=== PATIENT | female | born 1945 | race African-American/Black ===

== ENCOUNTER 2016-07-27 12:49 | Inpatient (IN) | payer MEDICARE, MEDICAID ==
[~2016-07-27] VITALS: Ht 152.4 cm; Wt 115.2 kg
[~2016-07-27 12:49] MED LIST: ATIVAN0.5 M1 PO; CALCIUM 500 + D1 TA1 PO; CEPHALEXIN500 M2 PO; CLARITIN10 MG PO; COLACE100 MG PO; COZAAR100 MG PO; DULCOLAX10 MG RC; FERROUS SULFAT325 M1 PO; FLEET ENEMA118 ML RC; LOVENOX40 MG/0.1 SUBQ; MILK OF MA400 MG/5 M PO; NEURONTIN100 MG PO; NIFEDICAL XL30 M1 PO; NORCO 325 MG-51 TAB PO; OSCAL500 MG PO; PEPCID20 MG PO; PRILOSEC40 MG PO; RESTORIL15 MG PO; ROBITUSSIN20 MG/1 ML PO; ROCALTROL0.25 MCG PO; SYNTHROID0.125 M1 PO; TENORMIN100 MG PO; TYLENOL EXTRA500 M1 PO; XALATAN 0.005%2.5 ML OP; ZESTRIL30 MG PO
[2016-07-27 12:55] VITALS: BP 213/106
--- NOTE | 2016-07-27 13:04 | NUR ---
70/F BIB DAUGHTER C/O HEADACHE, BODY ACHES, COUGH X1 DAY,Hx HTN, "THYROID CONDITION", NEPHRECTOMY 2014 . PT DENIES N/V/D; SKIN IS PINK/WARM/DRY; AAOX4 WITH EVEN AND UNSTEADY GAIT; LUNGS CLEAR BL; HR EVEN AND REGULAR; PT DENIES ANY FEVER OR CP AT THIS TIME; PATIENT STATES PAIN OF 10/10 AT THIS TIME; VSS; PATIENT POSITIONED FOR COMFORT; HOB ELEVATED; BEDRAILS UP X2; BED DOWN. ER MD MADE AWARE OF PT STATUS.
--- NOTE | 2016-07-27 13:04 | NUR ---
Note undone in EDM - 07/27/16 at 1910 by [email or web address] 70/F BIB DAUGHTER C/O HEADACHE, BODY ACHES, COUGH X1 DAY Hx HTN, "THYROID CONDITION", NEPHRECTOMY 2014PATIENT PRESENTS TO ED WITH . PT DENIES N/V/D; SKIN IS PINK/WARM/DRY; AAOX4 WITH EVEN AND UNSTEADY GAIT; LUNGS CLEAR BL; HR EVEN AND REGULAR; PT DENIES ANY FEVER OR CP AT THIS TIME; PATIENT STATES PAIN OF 10/10 AT THIS TIME; VSS; PATIENT POSITIONED FOR COMFORT; HOB ELEVATED; BEDRAILS UP X2; BED DOWN. ER MD MADE AWARE OF PT STATUS.
--- NOTE | 2016-07-27 13:05 | NUR ---
DR KHANNA EVALUATING PT AT BEDSIDE
--- NOTE | 2016-07-27 13:27 | NUR ---
LAB AT BEDSIDE
--- NOTE | 2016-07-27 13:38 | NUR ---
Patient appears to be resting comfortably in bed. Respirations even and unlabored.WILL CONTINUE TO MONITOR
--- NOTE | 2016-07-27 13:39 | NUR ---
X RAY AT BEDSIDE
[2016-07-27] MEDS ORDERED: cloNIDine 0.1 MG TAB PO ONE (15:25)
[2016-07-27] MEDS ORDERED: ACETAMINOPHEN EXTRA STRENGTH 500 MG TAB PO ONE (15:55)
[2016-07-27] MEDS ORDERED: ASPIRIN 81 MG TAB.CHEW PO ONE (16:50)
[2016-07-27] MEDS ORDERED: ACETAMINOPHEN 325 MG TAB PO PRN (18:35)
[2016-07-27] MEDS ORDERED: ONDANSETRON 4 MG/2 ML VIAL IVP PRN (18:35)
[2016-07-27] MEDS ORDERED: BISACODYL 10 MG SUPP RC PRN (18:45)
[2016-07-27] MEDS ORDERED: LORazepam 0.5 MG TAB PO PRN (18:45)
[2016-07-27] MEDS ORDERED: MAGNESIUM HYDROXIDE 2400 MG/30 ML UDC PO PRN (18:45)
[2016-07-27] MEDS ORDERED: TEMAZEPAM 15 MG CAP PO PRN (18:45)
--- NOTE | 2016-07-27 19:08 | NUR ---
CALLED TO GIVE REPORT ,BARRIE PINTO WILL CALL BACK
--- NOTE | 2016-07-27 19:15 | NUR ---
GIVEN REPORT TO BARRIE DAVIS
--- NOTE | 2016-07-27 19:25 | NUR ---
Patient will be admitted to care of DR DUNHAM (ORDER), DR JOHNSON (ADMITTING). Admited to TELE. Will go to room 108. Belongings list completed. Report to SUSAN.
--- NOTE | 2016-07-27 19:40 | NUR ---
PT IS CURRENTLY AWAKE ALERT ORIENTED ASSISTED TO HER BED,ORIENTED BUSINESS SUPPORT ASSISTANT LIGHT SYSTEM,ROOM AND VISITING HOURS,PT DENIES CHEST PAIN AND ANY SOB UPON ADMISSION. TELEMONITOR PLACED ON THE PATIENT AND WILL MONITOR HER HEART RHYTHM. SKIN CHECK DONE WITH REGULATORY SERVICES CONSULTANT NURSE DONOVAN AND SKIN IS INTACT.PT HAS UNSTEADY GAIT AND USES A CANE TO AMBULATE PT EDUCATED ON FALL AND SAFETY PRECAUTIONS AND VERBALIZES UNDERSTANDING.PLAN OF CARE DISCUSSED WITH THE PATIENT.MRSA COLLECTED AND WILL BE SEND TO THE LAB.VS TAKEN AND WILL BE RECORDED.ORDERS WILL BE REVIEWED AND CARRIED OUT.
[2016-07-27 20:13] VITALS: BP 132/70
--- NOTE | 2016-07-27 20:30 | NUR ---
PT RESTING IN BED AT THIS TIME DRANK SOME WATER SAYS HER VISION HAS BEEN NOT VERY CLEAR BUT SAYS SHE HAS HISTORY OF GLAUCOMA AND CATARACTS AND USES DROPS AT HOME.DENIES ANY HEADACHE AT THIS TIME.PLACED ON FALL PRECAUTIONS.WILL CONTINUE TO MONITOR.
[2016-07-27] MEDS: GABAPENTIN 100 MG CAP PO SCH (20:38)
[2016-07-27] MEDS: DOCUSATE SODIUM 250 MG GELCAP PO SCH (20:38)
[2016-07-27] MEDS: LATANOPROST 0.005% OP 2.5 ML BTL BOTH EYES SCH (21:00)
[2016-07-27] MEDS ORDERED: FAMOTIDINE 20 MG TAB PO SCH (21:00)
--- NOTE | 2016-07-27 22:30 | NUR ---
PT IS CURRENTLY RESTING IN BED SLEEPING NO PAIN OR DISCOMFORT NOTED.CALL LIGHT WITHIN REACH.
[2016-07-28] VITALS (8 sets, daily range): BP systolic 131–174; BP diastolic 44–104
--- NOTE | 2016-07-28 00:40 | NUR ---
PT ASSISTED TO USE THE BEDSIDE COMMODE WILL CONTINUE TO MONITOR PT NEEDS CONTINUE TO BE MET.CALL LIGHT WITHIN REACH.
--- NOTE | 2016-07-28 02:55 | NUR ---
MD DUNHAM AWARE THAT PT'S TROPONIN IS SLIGHTLY ELEVATED THAN LAST TIME AND INFORMED THAT PATIENT IS NOT COMPLAINING OF CHEST PAIN AND IS NOT IN ANY RESP DISTRESS.MD GAVE NO NEW ORDER.
[2016-07-28] MEDS: HYDROcodone/APAP 5/325 MG 1 TAB TAB PO PRN ×2 (04:05→13:27)
--- NOTE | 2016-07-28 04:09 | NUR ---
PT IS AWAKE ALERT ORIENTED WAS MEDICATED FOR HEADACHE PT STABLE DENIES ANY CHEST PAIN OR SOB NEEDS MET.CALL LIGHT WITHIN REACH WILL CONTINUE TO MONITOR.
--- NOTE | 2016-07-28 06:53 | NUR ---
PT STABLE RESTING IN BED IN NO DISTRESS WILL CONTINUE TO MONITOR.
--- NOTE | 2016-07-28 07:29 | NUR ---
PT STABLE REPORT ENDORSED TO RN NURSE CHLOE.
--- NOTE | 2016-07-28 07:30 | NUR ---
RECEIVED PT FROM BARRIE GAMEZ AWAKE AND LYING ON BED. AAOX4 WITH NO S/S OF RESPIRATORY DISCOMFORT. WITH IV ACCESS ON ARTHUR HAND 20G ON SALINE LOCK, PATENT AND INTACT. SKIN IS INTACT. DISCUSSED PLAN OF CARE, PT VERBALIZED UNDERSTANDING. ENFORCED FALL PRECAUTIONS. CALL LIGHT WITHIN REACH, WILL CONTINUE TO MONITOR.
[2016-07-28] MEDS: FERROUS SULFATE 325 MG TABEC PO SCH (08:33)
[2016-07-28] MEDS: LEVOTHYROXINE 0.025 MG TAB PO SCH (08:33)
[2016-07-28] MEDS: GABAPENTIN 100 MG CAP PO SCH ×2 (08:33→21:10)
[2016-07-28] MEDS: CALCITRIOL 0.25 MCG CAPLF PO SCH (08:34)
[2016-07-28] MEDS: DOCUSATE SODIUM 250 MG GELCAP PO SCH ×2 (08:34→21:11)
[2016-07-28] MEDS: NIFEdipine 30 MG TABER PO SCH (08:34)
[2016-07-28] MEDS: LOSARTAN 50 MG TAB PO SCH (08:34)
[2016-07-28] MEDS: ASPIRIN 81 MG TAB.CHEW PO SCH (08:34)
[2016-07-28] MEDS: PANTOPRAZOLE 40 MG TABEC PO SCH (08:35)
[2016-07-28] MEDS: ATENOLOL 50 MG TAB PO SCH (08:35)
[2016-07-28] MEDS ORDERED: NON-FORMULARY ITEM (Calcium/Vitamin D (Calcium 500 + D 500 Mg-200 Iu) 1 TAB) PO SCH (09:00)
[2016-07-28] MEDS ORDERED: CEPHALEXIN 500 MG CAP PO SCH (09:00)
[2016-07-28] MEDS ORDERED: CALCITRIOL 0.25 MCG CAPLF PO SCH (09:00)
[2016-07-28] MEDS ORDERED: NON-FORMULARY ITEM (Omeprazole* (Prilosec*) 20 MG) PO SCH (09:00)
[2016-07-28] MEDS ORDERED: ENOXAPARIN 30 MG/0.3 ML SYR SUBQ SCH (09:00)
[2016-07-28] MEDS ORDERED: LOSARTAN POTASSIUM PO SCH (09:00)
[2016-07-28] MEDS ORDERED: CALCIUM CARBONATE 500 MG TAB PO SCH (09:00)
[2016-07-28] MEDS ORDERED: ACETAMINOPHEN 500 MG PO PRN (09:00)
[2016-07-28] MEDS ORDERED: NON-FORMULARY ITEM (Levothyroxine Sodium (Synthroid) 1 TAB) PO SCH (09:00)
[2016-07-28] MEDS ORDERED: ENOXAPARIN 40 MG/0.4 ML SYR SUBQ SCH (09:00)
[2016-07-28] MEDS ORDERED: HYDROcodone/APAP 5/325 MG 1 TAB TAB PO PRN (09:00)
--- NOTE | 2016-07-28 09:04 | NUR ---
PATIENT HAS BEEN SCREENED AND CATEGORIZED HIGH NUTRITION RISK. PATIENT WILL BE SEEN WITHIN 1-2 DAYS OF ADMISSION. 07/28/16-07/29/[address]
[2016-07-28] MEDS ORDERED: MAGNESIUM OXIDE 400 MG TAB PO SCH (09:15)
--- NOTE | 2016-07-28 10:05 | NUR ---
PT AMBULATING IN THE HALLWAY WITH PT.
--- NOTE | 2016-07-28 10:23 | NUR ---
DR AMEZQUITA CALLED TO CHECK IN ON PT. NO NEW ORDERS.
--- NOTE | 2016-07-28 10:57 | NUR ---
PT AWAKE WITH SON AT BEDSIDE. ALL NEEDS MET AT THIS TIME, WILL CONTINUE TO MONITOR.
--- NOTE | 2016-07-28 11:59 | NUR ---
SPOKE TO DR JOHNSON TO VERIFY CEPHALEXIN, PLS DISREGARD PER .
--- NOTE | 2016-07-28 12:01 | NUR ---
CM NOTE PER HOSPITAL EDUCATION COORDINATOR MARY EXT [phone], [employer] WILL JUST CALL OR SEND THEIR FAX# IF THEY WOULD NEED A REVIEW. INITIAL REVIEW SENT TO MAYRA PHIPPS OF [place] FAX# [phone] PH# [phone] EXT [phone]
--- NOTE | 2016-07-28 12:19 | NUR ---
DR AMEZQUITA IN THE ROOM TO SEE PT
[2016-07-28] MEDS ORDERED: ENALAPRILAT 2.5 MG/2 ML VIAL IVP PRN (12:25)
[2016-07-28] MEDS: CALCIUM CARB/VIT-D 500 MG/200 IU 1 TAB PO SCH ×2 (13:26→17:07)
--- NOTE | 2016-07-28 14:19 | NUR ---
07/28/16 RD INITIAL ASSESSMENT COMPLETED PLEASE REFER TO NUTRITION ASSESSMENT UNDER CARE ACTIVITY FOR ESTIMATED NUTRITIONAL NEEDS. RD RECOMMENDATIONS: 1. CONTINUE 2GM SODIUM DIET TOLERATED 2. RD PROVIDED PT WITH HEALTHY EATING EDUCATION. PT ACCEPTED 3. RD WILL F/U 5-7 DAYS; LOW RISK. [address]
--- NOTE | 2016-07-28 14:31 | NUR ---
VASOTEC HELD, PT BP IS 147/82
--- NOTE | 2016-07-28 15:34 | NUR ---
PT AWAKE RESTING ON BED WATCHING TV, ALL NEEDS MET AT THIS TIME. CALL LIGHT WITHIN REACH, WILL CONTINUE TO MONITOR.
--- NOTE | 2016-07-28 19:29 | NUR ---
ENDORSED PT TO ANNE SOOD FOR CONTINUITY OF CARE IN STABLE CONDITION
--- NOTE | 2016-07-28 19:30 | NUR ---
RECEIVED REPORT FROM DAYSHIFT RN FOR CONTINUITY OF CARE. PATIENT IS A&OX4, EXPLAINED PLAN OF CARE TO PATIENT. SHIFT ASSESSMENT DONE, B/P 149/104 AT THIS TIME, VS TAKEN. PATIENT HAS NO S/S OF RESPIRATORY DISTRESS NOTED ON ROOM AIR. PATIENT DENIES PAIN. IV TO RT HAND 20 GAUGE PATENT AND FLUSHED. SKIN INTACT. SAFETY/FALL PRECAUTIONS ENFORCED. CALL LIGHT WITHIN REACH. WILL CONTINUE TO MONITOR.
[2016-07-28] MEDS: LATANOPROST 0.005% OP 2.5 ML BTL BOTH EYES SCH (21:11)
--- NOTE | 2016-07-28 21:11 | NUR ---
DUE MEDICATIONS ADMINISTERED, TOLERATED WELL. PROVIDED PATIENT WITH SNACK. EDUCATED PT ABOUT NPO AFTER MIDNIGHT FOR LEXISCAN. CALL LIGHT WITHIN REACH.
--- NOTE | 2016-07-28 22:47 | NUR ---
PT REQUESTED SLEEPING PILL, ADMINISTERED PER MD ORDER. WILL CONTINUE TO MONITOR.
[2016-07-29] VITALS: BP 146/83
--- NOTE | 2016-07-29 00:22 | NUR ---
VS TAKEN, STABLE. IV TO RT HAND REMOVED, CATHETER INTACT. IV INSERTION TO LT HAND 24 GAUGE PATENT AND FLUSHED. REINFORCED NPO, PATIENT VERBALIZED UNDERSTANDING. CALL LIGHT WITHIN REACH.
--- NOTE | 2016-07-29 02:32 | NUR ---
PATIENT IS SLEEPING. NO S/S OF RESPIRATORY DISTRESS NOTED. CALL LIGHT WITHIN REACH.
[2016-07-29] MEDS: HYDROcodone/APAP 5/325 MG 1 TAB TAB PO PRN (03:53)
--- NOTE | 2016-07-29 03:53 | NUR ---
PT C/O LEG PAIN, MEDICATED PER MD ORDER. VS TAKEN, STABLE.
[2016-07-29 04:00] VITALS: BP 166/87
--- NOTE | 2016-07-29 07:22 | NUR ---
ENDORSED PATIENT TO DAYSHIFT RN FOR CONTINUITY OF CARE, PATIENT IS STABLE.
--- NOTE | 2016-07-29 07:23 | NUR ---
RECEIVED PT FROM ANNE SOOD AWAKE AND LYING ON BED. WITH NEW IV ON LEFT HAND ON SALINE LOCK PATENT AND INTACT. SKIN IS INTACT. NO S/S OF RESPIRATORY DISTRESS. DISCUSSED PLAN OF CARE AND LEXISCAN TODAY, PT VERBALIZED UNDERSTANDING. CALL LIGHT WIHTIN REACH, WILL CONTINUE TO MONITOR.
[2016-07-29 08:00] VITALS: BP 124/59
[2016-07-29] MEDS ORDERED: ENOXAPARIN 40 MG/0.4 ML SYR SUBQ SCH (09:00)
[2016-07-29] MEDS: CALCIUM CARB/VIT-D 500 MG/200 IU 1 TAB PO SCH ×3 (09:00→16:51)
[2016-07-29] MEDS: LOSARTAN 50 MG TAB PO SCH (09:00)
[2016-07-29] MEDS: NIFEdipine 30 MG TABER PO SCH (09:00)
[2016-07-29] MEDS: ASPIRIN 81 MG TAB.CHEW PO SCH (09:00)
[2016-07-29] MEDS: CALCITRIOL 0.25 MCG CAPLF PO SCH (09:00)
[2016-07-29] MEDS: GABAPENTIN 100 MG CAP PO SCH (09:00)
[2016-07-29] MEDS: PANTOPRAZOLE 40 MG TABEC PO SCH (09:00)
[2016-07-29] MEDS: LEVOTHYROXINE 0.025 MG TAB PO SCH (09:00)
[2016-07-29] MEDS: FERROUS SULFATE 325 MG TABEC PO SCH (09:00)
[2016-07-29] MEDS: DOCUSATE SODIUM 250 MG GELCAP PO SCH (09:00)
[2016-07-29] MEDS: ATENOLOL 50 MG TAB PO SCH (09:00)
[2016-07-29] MEDS ORDERED: REGADENOSON 0.4 MG/5 ML SYR IV ONE (09:20)
--- NOTE | 2016-07-29 09:47 | NUR ---
PT LEFT UNIT FOR LEXISCAN ACCOMPANIED BY SAM IN A WHEELCHAIR. CONDITION STABLE.
--- NOTE | 2016-07-29 11:34 | NUR ---
LEXISCAN STRESS TEST DONE.
--- NOTE | 2016-07-29 11:40 | NUR ---
PT BACK IN UNIT AFTER LEXISCAN
[2016-07-29 12:00] VITALS: BP 134/101
--- NOTE | 2016-07-29 13:19 | NUR ---
JOSE NOTE ORDER FOR HOME HEALTH FOR PHYSICAL THERAPY SENT TO [facility] ATTN: JOSE Shipley # [phone] Addendum: 07/29/16 at 1322 by Paula Acharya CM CALLED JOSE Shipley OF [facility]# [phone] AND LEFT HER A MESSAGE REGARDING ORDER FOR HOME HEALTH FOR PT
--- NOTE | 2016-07-29 13:30 | NUR ---
PT AWAKE LYING ON BED NO S/S OF DISCOMFORT NOTED. CALL LIGHT WITHIN REACH, WILL CONTINUE TO MONITOR.
--- NOTE | 2016-07-29 14:37 | NUR ---
CM NOTE CALLED MAYRA TO FOLLOW UP ON THE PATIENT'S HOME HEALTH FOR PT ORDER AND SPOKE WITH CAROL PH# [phone] EXT [phone] AND SHE SAID THE CM ASSIGNED FOR THE PATIENT IS NOT [facility]YSON BUT RATHER LIONEL. SPOKE WITH JOSE FLOWERS PH# [phone] AND SHE SAID SHE RECEIVED THE ORDER AND THAT SHE WILL WORK ON IT AND WILL CALL BACK TODAY TO SAY WHICH HOME HEALTH SHE IS ABLE TO ARRANGE THE PATIENT WITH.
--- NOTE | 2016-07-29 15:30 | NUR ---
JOSE PRESSLEY SPOKE WITH JOSE FLOWERS OF [facility]# [phone] AND MADE HER AWARE OF THE DISCHARGE ORDER FOR THE PATIENT TODAY. PER JOSE FLOWERS, THE PATIENT'S HOME HEALTH FOR PHYSICAL THERAPY HAS BEEN SET UP WITH [facility]# [phone] TO START AFTER PATIENT'S DISCHARGE. SPOKE WITH JENNIFER OF [facility]# [phone] AND SHE SAID THEY WILL START THE PATIENT'S HOME HEALTH FOR PHYSICAL THERAPY TOMORROW.
[2016-07-29 16:00] VITALS: BP 148/77
--- NOTE | 2016-07-29 16:31 | NUR ---
PT AWAKE WATCHING TV. ALL NEEDS MET AT THIS TIME. CALL LIGHT WITHIN REACH, WILL CONTINUE TO MONITOR
--- NOTE | 2016-07-29 16:40 | NUR ---
DR AMEZQUITA AND DR. JOHNSON INFORMED OF LEXISCAN RESULT. OK TO BE DISCHARGED
--- NOTE | 2016-07-29 18:56 | NUR ---
DISCHARGE INSTRUCTIONS GIVEN, PT VERBALIZED UNDERSTANDING. ID WRISTBAND, TELE AND IV ACCESS REMOVED, CATHETER TIP INTACT. ADVISED PT TO FOLLOW UP WITH PCP WITHIN ONE WEEK OF DISCHARGE. NO S/S OF DISTRESS AT THIS TIME. PT STILL IN THE ROOM WAITING FOR DAUGHTER TO PICK HER UP
--- NOTE | 2016-07-29 19:10 | NUR ---
PT LEFT UNIT ON A WHEELCHAIR IN STABLE CONDITION ACCOMPANIED BY FIELD LABORER, STATED THAT DAUGHTER IS OUTSIDE
== END 2016-07-29 19:10 | disposition home health service (06) | DRG 305 ==
LOC: MED 12:49 → MTU 18:31
PROVIDERS: ADMIT Hospitalist; ATTEND Hospitalist
DX: I16.0 Hypertensive urgency (principal); N39.0 Urinary tract infection, site not specified; N28.9 Disorder of kidney and ureter, unspecified; E03.9 Hypothyroidism, unspecified; R07.89 Other chest pain; K21.9 Gastro-esophageal reflux disease without esophagitis; E78.5 Hyperlipidemia, unspecified; I11.9 Hypertensive heart disease without heart failure; I25.2 Old myocardial infarction; Z90.5 Acquired absence of kidney; Z90.49 Acquired absence of other specified parts of digestive tract; Z90.710 Acquired absence of both cervix and uterus; Z90.89 Acquired absence of other organs; Z79.899 Other long term (current) drug therapy

== ENCOUNTER 2021-08-08 13:51 | Observation (INO) | payer MEDICARE, MEDICAID, SELFPAY ==
[~2021-08-08] VITALS: Ht 152.4 cm; Wt 106.1 kg
[~2021-08-08 13:51] MED LIST changes: +ACET-7740 PO; +ATEN100T6 PO; +ATI.5 PO; -ATIVAN0.5 M1 PO; +BISA10SU1 RC; +CALC-232 PO; -CALCIUM 500 + D1 TA1 PO; -CEPHALEXIN500 M2 PO; -CLARITIN10 MG PO; -COLACE100 MG PO; -COZAAR100 MG PO; +DOCU-300 PO; -DULCOLAX10 MG RC; +FAMO-90 PO; +FERR-15 PO; -FERROUS SULFAT325 M1 PO; -FLEET ENEMA118 ML RC; +GABA100C PO; +HYDR-5122 PO; +LEVO0.124 PO; +LOSA100T1 PO; -LOVENOX40 MG/0.1 SUBQ; +MAGN400S60 PO; -MILK OF MA400 MG/5 M PO; +NA P135N9 RC; -NEURONTIN100 MG PO; -NIFEDICAL XL30 M1 PO; -NORCO 325 MG-51 TAB PO; +OMEP40EC24 PO; +OSC500 PO; -OSCAL500 MG PO; -PEPCID20 MG PO; -PRILOSEC40 MG PO; -RESTORIL15 MG PO; +ROB PO; -ROBITUSSIN20 MG/1 ML PO; +ROC.25 PO; -ROCALTROL0.25 MCG PO; -SYNTHROID0.125 M1 PO; +TEMA15CA24 PO; -TENORMIN100 MG PO; -TYLENOL EXTRA500 M1 PO; -XALATAN 0.005%2.5 ML OP; +XALOS OP; -ZESTRIL30 MG PO; +[UNRECOGNIZED DRUG - CODE] PO
[2021-08-08 13:54] VITALS: BP 154/108
--- NOTE | 2021-08-08 14:03 | NUR ---
PATIENT AMBULATED TO BED 11.
--- NOTE | 2021-08-08 14:10 | NUR ---
PT BIB SELF C/O LEFT BREAST PAIN X AM. DENIES TRAUMA/INJURY. PT STS " I HAVE HAD THIS BREAST PROBLEM OFF AND ON FOR YEARS." LT BREAST APPEARS RED, SWOLLEN, HOT TO TOUCH WITH DRAINING FROM LT NIPPLE X AM. ER MD DR SANDERS AT BEDSIDE. PAIN 06/24. PT AAOX4, LUNGS CL BILAT. IV 18GA RT A/C DONE BLOOD SENT TO LAB, FERCHO SENT TO LAB.
--- NOTE | 2021-08-08 14:45 | NUR ---
ULTRASOUND AT THE BEDSIDE.
[2021-08-08 15:11] LABS: BASOPHILS # (AUTO) 0.1 K/uL (0.00-0.22); BASOPHILS % (AUTO) 0.6 % (0.0-2.0); EOSINOPHILS % (AUTO) 0.5 % (0.0-4.0); HEMATOCRIT 34.3 % (36-48); HEMOGLOBIN 11.4 g/dL (12.0-16.0); LYMPHOCYTES # (AUTO) 1.1 K/uL (2.5-16.5); LYMPHOCYTES % (AUTO) 12.2 % (20.5-51.1); MEAN CORPUSCULAR HEMOGLOBIN 32 pg (27-31); MEAN CORPUSCULAR HGB CONC 33 g/dL (33-37); MEAN CORPUSCULAR VOLUME 94.6 fL (80-94); MONOCYTES # (AUTO) 1.2 K/uL (0.8-1.0); MONOCYTES % (AUTO) 13.2 % (1.7-9.3); NEUTROPHILS # (AUTO) 6.7 K/uL (1.8-7.7); NEUTROPHILS % (AUTO) 73.5 % (42.2-75.2); PLATELET COUNT (AUTO) 155 K/uL (140-450); RED BLOOD CELL COUNT(AUTO) 3.62 MIL/uL (4.20-5.40); RED CELL DISTRIBUTION WIDTH 13.8 % (11.6-13.7); WHITE BLOOD COUNT (AUTO) 9.2 K/uL (4.8-10.8)
[2021-08-08 15:26] LABS: ALBUMIN 3.7 g/dL (3.4-5.0); ANION GAP 10.4 (8-16); ASPARTATE AMINOTRANSFERASE 20 U/L (15-37); CARBON DIOXIDE 31.9 mmol/L (21-32); CHLORIDE 98 mmol/L (98-107); CREATININE 1.5 mg/dL (0.6-1.3); GLUCOSE 74 mg/dL (74-106); POTASSIUM 3.3 mmol/L (3.5-5.1); SODIUM SERUM 137 mmol/L (136-145); TOTAL BILIRUBIN 0.4 mg/dL (0.0-1.0); UREA NITROGEN, BLOOD 26 mg/dL (7-18)
--- NOTE | 2021-08-08 15:41 | NUR ---
FERCHO SWABBED AND SENT TO LAB
[2021-08-08] MEDS ORDERED: LORA10TA19 PO (15:59)
[2021-08-08] MEDS ORDERED: APIX5TAB PO (16:01)
[2021-08-08] MEDS ORDERED: ESOM20EC PO (16:01)
--- NOTE | 2021-08-08 16:08 | NUR ---
NPO STATUS AT THIS TIME PER DR. SANDERS.
--- NOTE | 2021-08-08 17:13 | NUR ---
pt ambulated to bathroom with even and steady gait at this time
--- NOTE | 2021-08-08 18:23 | NUR ---
spoke with tanvir (case management) requesting md notes at this time via fax [phone]
--- NOTE | 2021-08-08 18:39 | NUR ---
last dose of eliquis was today at 1300
[2021-08-08] MEDS ORDERED: MORPHINE SULFATE 2 MG/ML SYR IVP PRN (19:10)
[2021-08-08] MEDS ORDERED: VANCOMYCIN PER PHARMACY MC PRN (19:15)
--- NOTE | 2021-08-08 19:22 | NUR ---
labs at bedside
[2021-08-08] MEDS: LACTATED RINGERS 1,000 ML IV SCH (19:46)
[2021-08-08] MEDS ORDERED: VANCOMYCIN 1GM/DEXT 5% PREMIX 200 ML IV ONE (20:00)
[2021-08-08] MEDS ORDERED: cefTRIAXone 1,000 MG VIAL ONE (20:28)
--- NOTE | 2021-08-08 20:45 | NUR ---
Patient will be admitted to care of DR ENGLAND. Admited to Med/Surg. Will go to room 105B. Belongings list completed. Report to AQUILES SOOD AT 2048 BEDSIDE.
[2021-08-08 21:00] VITALS: BP 109/85
--- NOTE | 2021-08-08 21:00 | NUR ---
RECEIVED PATIENT FROM ER NURSE. PATIENT IS AWAKE, ALERT, AND COOPERATIVE, RESPIRATION EVEN UNLABORED ON ROOM AIR. NO DISTRESS NOTED. SKIN IS WARM AND DRY. IV PATENT AND INTACT. HEART RATE REGULAR. S1&S2 NOTED. LUNGS SOUNDS CLEAR UPON AUSCULTATION. BOWEL SOUNDS PRESENTS IN ALL QUADRANTS. ABDOMEN SOFT AND NON-TENDER. LEFT BREAST REDNESS, SWELLING, AND WARMTH NOTED. LAST BM 08/07/21. MRSA SCREEN DONE. VITALS WERE TAKEN. ORIENT PATIENT TO ROOM, STAFF AND CALL LIGHT. PLAN OF CARE DISCUSSED. ALL SAFETY MEASURES IN PLACE. BED IS AT LOW POSITION. CALL LIGHT WITHIN REACH. WILL CONTINUE TO MONITOR
[2021-08-08] MEDS ORDERED: VANCOMYCIN 1,000 MG VIAL ONE (21:48)
--- NOTE | 2021-08-08 23:35 | NUR ---
PATIENT IS ASKING FOR WATER, REMIND PATIENT THAT HER DIET ORDER IS NPO FOR POSSIBLE I&D PROCEDURE IN THE MORNING
--- NOTE | 2021-08-09 | NUR ---
MADE ROUNDS PATIENT SLEEPING RESPIRATION EVEN UNLABORED ON ROOM AIR. NO DISTRESS NOTED
[2021-08-09 04:00] VITALS: BP 132/99
--- NOTE | 2021-08-09 04:35 | NUR ---
PROVIDED MORNING CARE
--- NOTE | 2021-08-09 07:08 | NUR ---
PATIENT IV GOT INFILTRATED, PUT PILLOW TO ELEVATE THE ARM, INSERT NEW IV ON THE LEFT AC 20G. PT TOLERATED IT WELL. WILL CONTINUE TO MONITOR
[2021-08-09 07:29] LABS: BASOPHILS % (AUTO) 0.6 % (0.0-2.0); EOSINOPHILS % (AUTO) 0.6 % (0.0-4.0); HEMATOCRIT 32.2 % (36-48); HEMOGLOBIN 11.2 g/dL (12.0-16.0); LYMPHOCYTES # (AUTO) 1.2 K/uL (2.5-16.5); LYMPHOCYTES % (AUTO) 16.3 % (20.5-51.1); MEAN CORPUSCULAR HEMOGLOBIN 32 pg (27-31); MEAN CORPUSCULAR HGB CONC 35 g/dL (33-37); MEAN CORPUSCULAR VOLUME 92.7 fL (80-94); MONOCYTES # (AUTO) 1.1 K/uL (0.8-1.0); MONOCYTES % (AUTO) 14.7 % (1.7-9.3); NEUTROPHILS # (AUTO) 5.2 K/uL (1.8-7.7); NEUTROPHILS % (AUTO) 67.8 % (42.2-75.2); PLATELET COUNT (AUTO) 231 K/uL (140-450); RED BLOOD CELL COUNT(AUTO) 3.48 MIL/uL (4.20-5.40); RED CELL DISTRIBUTION WIDTH 13.8 % (11.6-13.7); WHITE BLOOD COUNT (AUTO) 7.6 K/uL (4.8-10.8)
--- NOTE | 2021-08-09 07:30 | NUR ---
RECEIVED REPORT FROM CASE ADVOCATE NURSE FOR CONTINUITY OF CARE. PATIENT AWAKE CALL LIGHT WITH IN EASY REACH.
--- NOTE | 2021-08-09 07:30 | NUR ---
ENDORSED PATIENT TO DAY SHIFT NURSE FOR CONTINUITY OF CARE
[2021-08-09 07:33] LABS: ANION GAP 9.4 (8-16); CARBON DIOXIDE 31.1 mmol/L (21-32); CHLORIDE 99 mmol/L (98-107); CREATININE 1.1 mg/dL (0.6-1.3); GLUCOSE 94 mg/dL (74-106); POTASSIUM 3.5 mmol/L (3.5-5.1); SODIUM SERUM 136 mmol/L (136-145); UREA NITROGEN, BLOOD 20 mg/dL (7-18)
[2021-08-09 08:00] VITALS: BP 129/71
--- NOTE | 2021-08-09 08:00 | NUR ---
DISCUSSED AND REVIEWED PLAN OF CARE WITH NAN MULLER. WILL CONTINUE TO MONITOR
--- NOTE | 2021-08-09 08:04 | NUR ---
CALLED CONFIRMING IF THE PATIENT STILL NPO. CONFIRMED THAT PATENT STILL NPO AND ALSO INFORM HIM THAT PATIENT HAD HER ELIQUIS YESTERDAY AND SAID ITS OKAY FOR HIM TO DO I AND D. PATIENT AWARE.
[2021-08-09] MEDS: LACTATED RINGERS 1,000 ML IV SCH ×3 (09:12→23:06)
--- NOTE | 2021-08-09 10:00 | NUR ---
PATIENT ON BED RESTING. CONTINUE ON NPO.
--- NOTE | 2021-08-09 11:19 | NUR ---
PATIENT HAS BEEN SCREENED AND CATEGORIZED LOW NUTRITION RISK. PATIENT WILL BE SEEN WITHIN 7 DAYS OF ADMISSION. 08/15/[address]
--- NOTE | 2021-08-09 11:45 | NUR ---
DR. CASTILLO AT BED SIDE.
[2021-08-09 12:00] VITALS: BP 136/79
--- NOTE | 2021-08-09 14:00 | NUR ---
PATIENT ALERT NO DISTRESS NOTED DAUGHTER AT BED SIDE WITH HER. PATIENT ASKING WHAT TIME IS HER SURGERY EXPLAINED THAT ITS GOING TO BE TODAY BUT WE DON'T HAVE YET THE EXACT TIME FOR SURGERY.
[2021-08-09] MEDS: ACETAMINOPHEN 325 MG TAB PO PRN (15:32)
--- NOTE | 2021-08-09 15:41 | NUR ---
COMPLAIN OF HEADACHE MEDICATED WITH TYLENOL ODER WITH SMALL SIP OF WATER.
[2021-08-09 16:00] VITALS: BP 164/89
[2021-08-09] MEDS ORDERED: BUPIVACAINE-MPF/EPI 0.25% 10 ML VIAL INJ ONE (17:18)
[2021-08-09] MEDS ORDERED: LIDOCAINE 1% 500 MG/50 ML VIAL ONE (17:18)
--- NOTE | 2021-08-09 17:39 | NUR ---
PATIENT ALERT ORIENTED WHEELED BY OR STAFF TO OR FOR I&D PROCEDURE.
[2021-08-09] MEDS ORDERED: fentaNYL citrate 0.05 MG/ML VIAL ONE (17:44)
[2021-08-09] MEDS ORDERED: PROPOFOL 200 MG/20 ML VIAL IV ONE (19:17)
[2021-08-09] MEDS ORDERED: METOPROLOL 5 MG/5 ML VIAL ONE (19:17)
[2021-08-09] MEDS ORDERED: ONDANSETRON 4 MG/2 ML VIAL ONE (19:17)
--- NOTE | 2021-08-09 19:18 | NUR ---
PATIENT STILL AT OR ENDORSE TO DISTRICT CLAIMS MANAGER NURSE FOR CONTINUITY OF CARE.
[2021-08-09 20:05] VITALS: BP 133/75
[2021-08-09] MEDS ORDERED: VANCOMYCIN 1,000 MG in NACL 0.9% 250 ML IV SCH (21:00)
[2021-08-09] MEDS: HYDROcodone/APAP 5/325 MG 1 TAB TAB PO PRN (21:27)
[2021-08-10] MEDS: HYDROcodone/APAP 5/325 MG 1 TAB TAB PO PRN (02:05)
[2021-08-10] MEDS: ACETAMINOPHEN 325 MG TAB PO PRN ×2 (03:51→13:25)
[2021-08-10 04:00] VITALS: BP 126/78
--- NOTE | 2021-08-10 07:32 | NUR ---
RECEIVED REPORT FROM MARKER DELIVERY NURSE FOR CONTINUITY OF CARE. PT IN BED AT THIS TIME ON THE PHONE. RESPIRATIONS ARE EVEN AND UNLABORED. NO SIGNS OF DISTRESS NOTED. NO SIGNS OF PAIN OR DISCOMFORT AT THIS TIME. CALL LIGHT WITHIN REACH. ALL SAFETY MEASURES IN PLACE. WILL CONTINUE TO MONITOR.
[2021-08-10 08:00] VITALS: BP 110/76
[2021-08-10] MEDS ORDERED: CLIN300C2 PO ×2 (08:38→15:30)
[2021-08-10] MEDS ORDERED: HYDR-5080 PO ×2 (08:38→15:35)
--- NOTE | 2021-08-10 11:46 | NUR ---
DID ROUNDS ON PT. PT STATES SHE WISHES TO GET UP TO AMBULATE TO REST ROOM. ASSISTED PT WITH AMBULATION. PT TOLERATED WELL. CALL LIGHT WITHIN REACH. ALL SAFETY MEASURES IN PLACE. WILL CONTINUE TO MONITOR.
[2021-08-10 12:46] VITALS: BP 110/76
--- NOTE | 2021-08-10 15:05 | NUR ---
DISCHARGE ORDER IN PLACE. WENT OVER DISCHARGE PAPERWORK WITH PT. ANSWERED ALL QUESTIONS. PT SIGNED ALL PAPERWORK. REMOVED IV. IV CATHETER INTACT. REMOVED WRIST BAND. AWAITING FOR PT DAUGHTER TO SURVEY RESEARCH PROFESSOR.
[2021-08-10] MEDS ORDERED: HYDR-5191 PO (15:33)
--- NOTE | 2021-08-10 16:00 | NUR ---
PT DISCHARGED HOME WITH HER DAUGHTER. ALL BELONGINGS TAKEN UPON DISCHARGE. PT REQUESTED THAT MEDICATIONS BE CHANGED TO ANOTHER PHARMACY. MADE AWARE.
--- NOTE | 2021-08-12 14:45 | NUR ---
LATE ENTRY- CEFTRIAXONE DISCONTINUED AT 2044.
== END 2021-08-10 16:00 | disposition home or self-care (01) ==
LOC: MED 13:51 → MTU 19:13
PROVIDERS: ADMIT Student in an Organized Health Care Education/Training Program; ATTEND Student in an Organized Health Care Education/Training Program
DX: A41.9 Sepsis, unspecified organism (principal); Z20.822 Contact with and (suspected) exposure to COVID-19; N61.1 Abscess of the breast and nipple; I48.0 Paroxysmal atrial fibrillation; I10 Essential (primary) hypertension; E66.9 Obesity, unspecified; R00.0 Tachycardia, unspecified; E86.1 Hypovolemia; E78.5 Hyperlipidemia, unspecified; I25.2 Old myocardial infarction; Z79.01 Long term (current) use of anticoagulants; Z79.899 Other long term (current) drug therapy; Z85.528 Personal history of other malignant neoplasm of kidney
CPT/HCPCS: 19020; 19120; 36415; 71045; 76641; 76942; 80048; 80053; 85025; 87070; 87075; 87081; 87205; 87426; 88307; 88313; 88342; 93005; 96361; 96365; 96366; 96367; 96376; 99284; G0378; J0696; J2001; J2405; J2704; J3010; J3370; J3490; J7030; J7060; J7120; Q0092

== ENCOUNTER 2022-04-10 11:08 | Emergency (ER) | payer MEDICARE, MEDICAID ==
[~2022-04-10] VITALS: Ht 152.4 cm; Wt 108.9 kg
[~2022-04-10 11:08] MED LIST changes: +APIX5TAB PO; -ATEN100T6 PO; -BISA10SU1 RC; -CALC-232 PO; +CLIN300C2 PO; +ESOM20EC PO; -FAMO-90 PO; -FERR-15 PO; +HYDR-5080 PO; +LORA10TA19 PO; -MAGN400S60 PO; -NA P135N9 RC; -OMEP40EC24 PO; -ROB PO; -ROC.25 PO; -TEMA15CA24 PO; -XALOS OP
[2022-04-10 11:22] VITALS: BP 111/75
--- NOTE | 2022-04-10 12:39 | NUR ---
76/F PRESENTS TO ED WITH C/O SORE THROAT AND LEFT EAR PAIN SINCE LAST NIGHT, REPORTS TAKING TYLENOL WITH SOME RELIEF. DENIES COUGH, FEVERS, CP, SOB OR RECENT SICK CONTACTS.
[2022-04-10] MEDS ORDERED: AMOX500C25 PO (12:48)
[2022-04-10] MEDS ORDERED: TRAM50TA1 PO (12:48)
--- NOTE | 2022-04-10 12:55 | NUR ---
Patient discharged with v/s stable. Written and verbal after care instructions FOR [facility] [employer] given and explained. Patient alert, oriented and verbalized understanding of instructions. Ambulatory with steady gait. All questions addressed prior to discharge. ID band removed. Patient advised to follow up with PMD. Rx of AMOXICILLIN AND TRAMDOL given. Opportunity to ask questions provided and answered.
== END 2022-04-10 12:55 | disposition home or self-care (01) ==
LOC: MED 11:08
DX: H66.92 Otitis media, unspecified, left ear (principal); K21.9 Gastro-esophageal reflux disease without esophagitis; I10 Essential (primary) hypertension; I25.2 Old myocardial infarction; Z87.442 Personal history of urinary calculi; Z79.899 Other long term (current) drug therapy
CPT/HCPCS: 99283